=== PATIENT | male | born 1960 | race Caucasian/White ===

== ENCOUNTER 2023-08-20 12:21 | Emergency (ER) | payer SELFPAY ==
[2023-08-20 14:11] LABS: CALCIUM 8.9 mg/dL (8.5-10.1); CREATININE 1.1 mg/dL (0.8-1.3); EST CRCL DRUG DOSING (CG) 79.7 mL/min; MAGNESIUM 1.7 mg/dL (1.8-2.4)
[2023-08-20 14:34] LABS: ANION GAP 11.5 mmol/L (5.0-14.0); POTASSIUM,K 2.5 mmol/L (3.6-5.2)
[2023-08-20] MEDS ORDERED: Sodium Chloride 0.9% 10 ML Syringe FLUSH PRN (14:37)
[2023-08-20] MEDS ORDERED: Potassium Chloride 20 MEQ in Premix Bag 1 BAG IV ONE (14:37)
[2023-08-20] MEDS ORDERED: Potassium Chloride 20 MEQ Tab.ER PO ONE (14:37)
[2023-08-20] MEDS ORDERED: Magnesium Sulfate/Water 2 GM in Premix Bag 1 BAG IV ONE (14:37)
[2023-08-20] MEDS ORDERED: cloNIDine 0.1 MG Tab PO ONE (14:40)
== END 2023-08-20 17:23 | disposition home or self-care (01) ==
LOC: JP.ED 12:21
DX: E87.6 Hypokalemia (principal); I10 Essential (primary) hypertension; F17.210 Nicotine dependence, cigarettes, uncomplicated; Z88.8 Allergy status to other drugs, medicaments and biological substances; Z90.49 Acquired absence of other specified parts of digestive tract; Z79.899 Other long term (current) drug therapy
CPT/HCPCS: 36415; 80048; 83735; 93005; 96365; 96366; 96368; 99285; A9270; J3475; J3480; J3490